=== PATIENT | male | born 1995 | race African-American/Black ===

== ENCOUNTER 2022-03-09 11:03 | Emergency (ER) | payer OTHER ==
[2022-03-09 13:05] LABS: Bilirubin Negative (Negative); Blood, Urine Negative (Negative); Clarity Clear (Clear); Glucose, Urine (Dipstick) Normal (Negative); Ketone, Urine Negative (Negative); Leukocyte Negative Leu/uL (Negative); Nitrite Negative (Negative); Protein, Urine (Dipstick) Negative (Neg-Trace); Urobilinogen Normal mg/dL (Less than 2); pH, Urine 6.5 (5.0-9.0)
[2022-03-09 13:25] LABS: #Eosinphils 0.2 thou/uL (0.0-0.7); #Lymphocytes 1.3 thou/uL (1.20-3.40); #Monocytes 0.4 thou/uL (0.11-0.59); #Neutrophils 4.3 thou/uL (1.40-6.50); %Basophils 0.3 % (0.0-1.0); %Eosinophils 2.8 % (0.0-10.0); %Lymphocytes 21.5 % (21.0-51.0); %Monocytes 5.6 % (0.0-10.0); %Neutrophils 69.8 % (42.0-75.0); Hemoglobin 14.3 g/dL (14.0-18.0); Mean Corpuscular HGB CONC 32.4 g/dL (32.0-36.0); Mean Corpuscular Hemoglobin 28.7 pg (27.0-31.0); Mean Corpuscular Volume 88.5 fL (78.0-98.0); Platelet Count 204 thou/uL (130-400); RBC Distribution Width 11.7 % (11.5-14.5); Red Blood Cell (RBC) Count 4.97 mill/uL (4.70-6.10); White Blood Cell (WBC) Count 6.1 thou/uL (4.8-10.8)
[2022-03-09 13:59] LABS: ALT (SGPT) 17 U/L (8-55); AST (SGOT) 15 U/L (5-34); Albumin 4.4 g/dL (3.5-5.0); Alkaline Phosphatase 81 U/L (40-110); Anion Gap 13 mmol/L (10-20); BUN (Urea Nitrogen) 12 mg/dL (8.9-20.6); Bilirubin, Total 0.7 mg/dL (0.2-1.2); CK (CPK) 228 U/L (30-200); Calc. Creatinine Clearance 0 mL/min (70-130); Calcium 9.7 mg/dL (7.8-10.44); Carbon Dioxide 27 mmol/L (22-29); Chloride 104 mmol/L (98-107); Estimated GFR 98; Globulin 4.2 g/dL (2.4-3.5); Glucose 75 mg/dL (70-105); Lipase 12 U/L (8-78); Potassium 3.8 mmol/L (3.5-5.1); Protein, Total 8.6 g/dL (6.0-8.3); Sodium 140 mmol/L (136-145)
[2022-03-10 12:09] LABS: Chlam.trachomatis by PCR,Urine DETECTED (NotDetected)
== END 2022-03-09 14:16 | disposition home or self-care (01) ==
LOC: ERS 11:03
DX: N13.30 Unspecified hydronephrosis (principal); N32.0 Bladder-neck obstruction
CPT/HCPCS: 74176; 80053; 81003; 82550; 83690; 85025; 87491; 87591

== ENCOUNTER 2022-10-16 00:14 | Emergency (ER) | payer OTHER, SELFPAY ==
[2022-10-16] MEDS ORDERED: Mag-Al 1200 mg/1200 mg/30 ML UDCUP ONE (01:04)
[2022-10-16] MEDS ORDERED: Dicyclomine 20 MG TAB ONE (01:04)
[2022-10-16] MEDS ORDERED: Lidocaine Viscous Sol 2% 15 ml UD Cup ONE (01:04)
[2022-10-16 01:20] LABS: #Basophils 0.1 thou/uL (0.0-0.2); #Eosinphils 0.3 thou/uL (0.0-0.7); #Lymphocytes 1.5 thou/uL (1.20-3.40); #Monocytes 0.6 thou/uL (0.11-0.59); #Neutrophils 6.3 thou/uL (1.40-6.50); %Eosinophils 3.4 % (0.0-10.0); %Lymphocytes 17.3 % (21.0-51.0); %Monocytes 6.4 % (0.0-10.0); Hemoglobin 13.3 g/dL (14.0-18.0); Mean Corpuscular HGB CONC 32.6 g/dL (32.0-36.0); Mean Corpuscular Hemoglobin 29.1 pg (27.0-31.0); Mean Corpuscular Volume 89.2 fl (78.0-98.0); Mean Platelet Volume 9.3 fL (7.4-10.4); Platelet Count 196 10x3/uL (130-400); RBC Distribution Width 12.3 % (11.5-14.5); Red Blood Cell (RBC) Count 4.58 mill/uL (4.70-6.10); White Blood Cell (WBC) Count 8.8 10x3/uL (4.8-10.8)
[2022-10-16 01:41] LABS: ALT (SGPT) 16 U/L (8-55); AST (SGOT) 17 U/L (5-34); Alkaline Phosphatase 68 U/L (40-110); Anion Gap 17 mmol/L (10-20); BUN (Urea Nitrogen) 9 mg/dL (8.9-20.6); Bilirubin, Total 0.4 mg/dL (0.2-1.2); Calc. Creatinine Clearance 0 mL/min (70-130); Calcium 8.8 mg/dL (7.8-10.44); Carbon Dioxide 18 mmol/L (22-29); Chloride 109 mmol/L (98-107); Estimated GFR 96; Globulin 3.3 g/dL (2.4-3.5); Glucose 79 mg/dL (70-105); Lipase 9 U/L (8-78); Potassium 3.9 mmol/L (3.5-5.1); Protein, Total 7.3 g/dL (6.0-8.3); Sodium 140 mmol/L (136-145)
[2022-10-16] MEDS ORDERED: Benzocaine 20% Spray 60 ML CAN ONE (02:59)
== END 2022-10-16 03:26 | disposition home or self-care (01) ==
LOC: ERS 00:14
DX: R10.11 Right upper quadrant pain (principal)
CPT/HCPCS: 36415; 76700; 80053; 83690; 85025; 93005; 94640

== ENCOUNTER 2022-10-20 08:50 | Emergency (ER) | payer SELFPAY ==
[2022-10-20] MEDS ORDERED: Ipratropium Bromide 2.5 ml Neb ONE (09:56)
[2022-10-20] MEDS ORDERED: Albuterol 2.5 MG/0.5 ML NEB ONE (09:56)
[2022-10-20] MEDS ORDERED: methylPREDNISolone Sod Succ/PF 125 MG/2 ML VIAL ONE (10:09)
[2022-10-20 10:46] LABS: #Eosinphils 0.2 thou/uL (0.0-0.7); #Lymphocytes 1.1 thou/uL (1.20-3.40); #Monocytes 0.7 thou/uL (0.11-0.59); #Neutrophils 6.3 thou/uL (1.40-6.50); %Basophils 0.4 % (0.0-1.0); %Eosinophils 2.5 % (0.0-10.0); %Lymphocytes 13.7 % (21.0-51.0); %Monocytes 7.9 % (0.0-10.0); %Neutrophils 75.6 % (42.0-75.0); Hemoglobin 14.8 g/dL (14.0-18.0); Mean Corpuscular HGB CONC 33.2 g/dL (32.0-36.0); Mean Corpuscular Hemoglobin 29.2 pg (27.0-31.0); Mean Corpuscular Volume 87.9 fl (78.0-98.0); Mean Platelet Volume 9.1 fL (7.4-10.4); Platelet Count 211 10x3/uL (130-400); RBC Distribution Width 12.3 % (11.5-14.5); Red Blood Cell (RBC) Count 5.07 mill/uL (4.70-6.10); White Blood Cell (WBC) Count 8.3 10x3/uL (4.8-10.8)
[2022-10-20 10:52] LABS: ALT (SGPT) 20 U/L (8-55); AST (SGOT) 15 U/L (5-34); Albumin 4.4 g/dL (3.5-5.0); Alkaline Phosphatase 82 U/L (40-110); Anion Gap 14 mmol/L (10-20); BUN (Urea Nitrogen) 4 mg/dL (8.9-20.6); Bilirubin, Total 0.9 mg/dL (0.2-1.2); Calc. Creatinine Clearance 0 mL/min (70-130); Calcium 9.6 mg/dL (7.8-10.44); Carbon Dioxide 22 mmol/L (22-29); Chloride 104 mmol/L (98-107); Estimated GFR 98; Globulin 3.8 g/dL (2.4-3.5); Glucose 95 mg/dL (70-105); Potassium 3.3 mmol/L (3.5-5.1); Protein, Total 8.2 g/dL (6.0-8.3); Sodium 137 mmol/L (136-145)
== END 2022-10-20 11:36 | disposition home or self-care (01) ==
LOC: ERS 08:50
DX: J45.901 Unspecified asthma with (acute) exacerbation (principal); M54.6 Pain in thoracic spine
CPT/HCPCS: 36415; 71045; 80053; 85025; 93005; 94640; 96374; J2930; J7611